=== PATIENT | female | born 1995 | race Caucasian/White ===

== ENCOUNTER 2017-06-29 18:33 | Emergency (ER) | payer MEDICAID ==
[~2017-06-29] VITALS: Ht 160 cm; Wt 79.4 kg
[~2017-06-29 18:33] MED LIST: Zithromax250 MG PO
[2017-06-29] MEDS ORDERED: PSEU120ER PO (19:56)
[2017-06-29] MEDS ORDERED: BENZ100A PO (19:56)
== END 2017-06-29 20:09 | disposition home or self-care (01) ==
LOC: ER 18:33
DX: J40 Bronchitis, not specified as acute or chronic (principal); F17.200 Nicotine dependence, unspecified, uncomplicated; Z87.01 Personal history of pneumonia (recurrent)
CPT/HCPCS: 71046; 99283

== ENCOUNTER 2019-11-12 10:45 | Emergency (ER) | payer OTHER ==
[~2019-11-12] VITALS: Ht 160 cm; Wt 86.2 kg
[~2019-11-12 10:45] MED LIST changes: +BENZ100A PO; +PSEU120ER PO
== END 2019-11-12 11:40 | disposition home or self-care (01) ==
LOC: ER 10:45
DX: J02.0 Streptococcal pharyngitis (principal); F17.210 Nicotine dependence, cigarettes, uncomplicated
CPT/HCPCS: 96372; 99282-25; J0561; J1100

== ENCOUNTER 2020-02-11 06:49 | Emergency (ER) | payer OTHER ==
[~2020-02-11] VITALS: Ht 157.5 cm; Wt 88.5 kg
== END 2020-02-11 08:07 | disposition home or self-care (01) ==
LOC: ER 06:49
DX: J02.0 Streptococcal pharyngitis (principal); F17.210 Nicotine dependence, cigarettes, uncomplicated
CPT/HCPCS: 96372; 99282-25; J0561; J1100

== ENCOUNTER → 2020-06-05 | Outpatient (CLI) | payer OTHER ==
[2020-06-06 09:09] LABS: Candida species (DNA Probe) Negative (NEGATIVE); G. vaginalis (DNA Probe) Positive (NEGATIVE); T. vaginalis (DNA Probe) Negative (NEGATIVE)
== END | disposition home or self-care (01) ==
LOC: LAB SHORT 11:48 → LAB 11:48
PROVIDERS: Advanced Practice Midwife
DX: N76.0 Acute vaginitis (principal)
CPT/HCPCS: 87480; 87510; 87660